=== PATIENT | female | born 1975 | race Caucasian/White ===

== ENCOUNTER → 2020-07-03 | Day surgery (SDC) | payer BC ==
[~2020-07-03] MED LIST: ATORVASTATIN CA10 MG PO; ESCITALOPRAM OX20 MG PO; FISH OIL 500 M1 EAC1 PO; HYGROTON TAB 2525 MG PO; LISINOPRIL10 MG PO; MULTIPLE VITAM1 EAC1 PO; VITAMIN D21250 MCG PO
== END | disposition home or self-care (01) ==
LOC: OR 06:34
DX: Z12.11 Encounter for screening for malignant neoplasm of colon (principal); J45.909 Unspecified asthma, uncomplicated; E78.5 Hyperlipidemia, unspecified; I10 Essential (primary) hypertension; K76.0 Fatty (change of) liver, not elsewhere classified; F32.9 Major depressive disorder, single episode, unspecified; E66.01 Morbid (severe) obesity due to excess calories; M19.90 Unspecified osteoarthritis, unspecified site; Z80.0 Family history of malignant neoplasm of digestive organs; Z68.41 Body mass index [BMI] 40.0-44.9, adult; Z79.899 Other long term (current) drug therapy
CPT/HCPCS: 84703; J2250; J2704; J7030

== ENCOUNTER → 2020-09-14 | Outpatient (CLI) | payer BC | LOC: KOH-I 11:08 | DX: M54.2 Cervicalgia (principal); M47.812 Spondylosis without myelopathy or radiculopathy, cervical region | CPT/HCPCS: 72050 ==

== ENCOUNTER → 2020-09-23 | Outpatient (CLI) | payer BC | LOC: KOH-I 08:21 | DX: M50.11 Cervical disc disorder with radiculopathy, high cervical region (principal); R20.2 Paresthesia of skin | CPT/HCPCS: 72141 ==

== ENCOUNTER → 2020-10-23 | Outpatient (CLI) | payer BC | LOC: ECHO 10:34 | DX: I10 Essential (primary) hypertension (principal); R94.31 Abnormal electrocardiogram [ECG] [EKG] | CPT/HCPCS: ECHO; 93306 ==

== ENCOUNTER → 2021-06-01 | Outpatient (CLI) | payer BC | LOC: KOH-I 12:08 | DX: M25.551 Pain in right hip (principal); M16.11 Unilateral primary osteoarthritis, right hip | CPT/HCPCS: 73502 ==

== ENCOUNTER → 2021-06-08 | Outpatient (CLI) | payer BC | LOC: KOH-I 11:09 | DX: M25.551 Pain in right hip (principal); M16.11 Unilateral primary osteoarthritis, right hip; M85.651 Other cyst of bone, right thigh | CPT/HCPCS: 73721 ==

== ENCOUNTER → 2021-06-28 | Outpatient (CLI) | payer BC | LOC: CT 15:00 | DX: R14.0 Abdominal distension (gaseous) (principal); K65.9 Peritonitis, unspecified; R10.9 Unspecified abdominal pain; K57.32 Diverticulitis of large intestine without perforation or abscess without bleeding | CPT/HCPCS: Q9967 ==

== ENCOUNTER → 2021-07-06 | Outpatient (CLI) | payer BC | LOC: US 07:55 | DX: K80.20 Calculus of gallbladder without cholecystitis without obstruction (principal) | CPT/HCPCS: 76705 ==